=== PATIENT | female | born 1945 | race Caucasian/White ===

== ENCOUNTER → 2018-03-06 | Outpatient (CLI) | payer OTHER, BC ==
[~2018-03-06] MED LIST: IOPAMIDOL (ISOVUE-300) 100 ML BTL ONE
== END ==
LOC: CIMAGING 11:14
PROVIDERS: ATTEND Physician Assistant Medical
DX: N20.0 Calculus of kidney (principal); Q62.11 Congenital occlusion of ureteropelvic junction
CPT/HCPCS: 74178; Q9967; 82565-PO